=== PATIENT | female | born 1990 | race Caucasian/White ===

== ENCOUNTER 2018-08-05 10:29 | Emergency (ER) | payer BC ==
[~2018-08-05] VITALS: Ht 167.6 cm; Wt 68.0 kg
[2018-08-05 11:01] VITALS: BP 124/70
== END 2018-08-05 11:25 | disposition home or self-care (01) ==
LOC: ER 10:35
DX: N39.0 Urinary tract infection, site not specified (principal)
CPT/HCPCS: 99283; A4606; Z7610